=== PATIENT | female | born 1990 | race Two or more races ===

== ENCOUNTER 2020-08-27 12:54 | Emergency (ER) | payer SELFPAY ==
[~2020-08-27] VITALS: Ht 152.4 cm; Wt 60.6 kg
[2020-08-27 13:35] VITALS: BP 116/46
--- NOTE | 2020-08-27 14:34 | NUR ---
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 RESP EVEN AND UNLABORED, NADN. 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
--- NOTE | 2020-08-27 14:41 | NUR ---
Patient given discharge instructions and they have confirmed that they understand the instructions. Patient ambulatory with steady gait using provided crutches.
== END 2020-08-27 14:59 | disposition home or self-care (01) ==
LOC: ED 14:40
DX: S83.92XA Sprain of unspecified site of left knee, initial encounter (principal); W18.39XA Other fall on same level, initial encounter; Y93.89 Activity, other specified; Y92.098 Other place in other non-institutional residence as the place of occurrence of the external cause; Y99.8 Other external cause status
CPT/HCPCS: 29505; 99283